=== PATIENT | male | born 1965 | race Caucasian/White ===

== ENCOUNTER 2018-03-16 08:04 | Outpatient (CLI) | payer OTHER | END 2018-03-16 15:19 | disposition home or self-care (01) | LOC: SONOGRAMA 08:04 | DX: R10.30 Lower abdominal pain, unspecified (principal) ==

== ENCOUNTER 2018-05-12 04:22 | Day surgery (SDC) | payer OTHER ==
[~2018-05-12 04:22] MED LIST: AMILODIPINE PO; CRESTOR5 MG PO; DESCOVY 200-251 EACH PO; FENOFIBRATE145 MG PO; FISH OIL-VIT D1 EACH PO; FOLIC ACID1 MG PO; KALETRA 200-501 EACH PO; KAPVAY0.1 MG PO; M.V.I. ADULT10 ML PO
== END 2018-05-12 14:05 | disposition home or self-care (01) ==
LOC: CIR.AMB 04:22
DX: K40.90 Unilateral inguinal hernia, without obstruction or gangrene, not specified as recurrent (principal); D17.1 Benign lipomatous neoplasm of skin and subcutaneous tissue of trunk

== ENCOUNTER → 2018-05-14 | Emergency (ER) | payer OTHER | END | disposition left against medical advice (07) | LOC: ER 12:00 | DX: Z53.20 Procedure and treatment not carried out because of patient's decision for unspecified reasons (principal) ==

== ENCOUNTER 2018-08-19 10:38 | Outpatient (CLI) | payer OTHER | END 2018-08-19 10:52 | disposition home or self-care (01) | LOC: SONOGRAMA 10:38 | DX: R10.30 Lower abdominal pain, unspecified (principal) ==